=== PATIENT | female | born 1960 | race Caucasian/White ===

== ENCOUNTER 2023-01-28 08:36 | Emergency (ER) | payer BC, SELFPAY ==
[2023-01-28 08:50] VITALS: BP 155/82; PULSE 87; RESP 16; TEMP 36.7; O2SAT 99
--- NOTE | 2023-01-28 08:52 | ED.GENADULT ---
HPI - General Adult General Chief complaint: Extremity Injury, Lower Stated complaint: Right Leg Pain Source: patient, RN notes reviewed and old records reviewed Mode of arrival: ambulatory Limitations: no limitations History of Present Illness HPI narrative: 62 year old female who presents to [facility] with complaints of pain to right leg posteriorly radiating to below right knee at intervals for the past 3 years at various times. Patient states that she lifted some pots initially 3 years ago and then started having this pain at intervals the past 3 years. On the 02 of January she woke up from a nightmare and was kicking and has had a restart of acute discomfort in her right hamstring and her sciatica. Patient reports that she has been taking Naproxen for her discomfort and she feels she needs some physical therapy but doesn't have PCP. MD complaint: pain down right leg Onset (ago): week(s) (this interval started on the 4th of this month) Severity scale (1-10): 6 Quality: other (soreness) Exacerbating factors: movement and other (walking, changing positions) Treatments prior to arrival: other (naproxen) Related Data Allergies Allergy/AdvReac Type Severity Reaction Status Date / Time No Known Allergies Allergy Verified 01/28/23 08:55 Review of Systems Review of Systems: CONSTITUTIONAL: Denies fever, chills, or sweats. EYES: Denies visual changes, redness, or discharge. ENT: Denies rhinorrhea, congestion, sore throat, or otalgia. CARDIOVASCULAR: Denies chest pain, palpitations, or edema. RESPIRATORY: Denies cough or dyspnea. GASTROINTESTINAL: Denies abdominal pain, nausea, vomiting, or diarrhea. GENITOURINARY: Denies dysuria or hematuria. SKIN: Denies rash or itching. MUSCULOSKELETAL: Denies back pain reports pain in right thigh posteriorly radiating to below her knee, or myalgia. NEUROLOGIC: Denies headache, numbness, or weakness. PSYCHIATRIC: Denies anxiety or depression. All systems reviewed & are unremarkable except as noted in HPI and below PMFSH Past Medical History Medical History (Updated 01/28/23 @ 11:07 by Tanesha Wilson NP) Endometriosis Surgical History Surgical History (Updated 01/28/23 @ 11:07 by Tanesha Wilson NP) H/O: hysterectomy Social History Social History (Updated 01/28/23 @ 11:07 by HEAVEN Castillo Smoking status: Never smoker Alcohol intake: current Alcohol use details: rare social Substance use type: does not use Gender identity (if verbalized by the patient): Female Comments At time of signature, agree with nursing past medical, surgical, social and family history. There is no relevant family history pertinent to the presenting complaint Exam Narrative: GENERAL: Well-appearing, well-nourished, and in no acute distress. HEAD: Normocephalic, atraumatic. EYES: PERRLA and EOMI. ENT: Nares clear, no rhinorrhea or epistaxis. Mucous membranes moist. NECK: Supple. no lymphadenopathy CHEST: Clear to auscultation. No respiratory distress.SAO2 99% on room air HEART: Regular rate and rhythm. No murmur heard. Normal peripheral pulses. ABDOMEN: Soft, nontender, nondistended, normal active bowel sounds. EXTREMITIES: Normal range of motion. No edema.Pain to posterior right thigh region radiating down to below her right knee, circulation and sensation intact, no saddle paraesthesia. Increased pain with walking and movement of right leg. SKIN: Warm, dry, no rash. NEURO: No focal deficits. Alert and oriented x3. Course Course Emergency Course: Patient is aware of diagnosis, understands and agrees to treatment plan.? Anticipatory guidance given.? Patient agrees to follow-up as directed and is aware of reasons to seek care at the emergency department. Portions of this record may have been created with voice recognition software Level of Care: Express Care Visit Vital Signs Vital signs: Vital Signs Temperature 36.7 C 01/28/23 08:50 Pulse Rate 87 01/28/23
== END 2023-01-28 09:27 | disposition home or self-care (01) ==
PROVIDERS: Emergency Provider Registered Nurse
DX: M54.31 Sciatica, right side (principal); N80.9 Endometriosis, unspecified
CPT/HCPCS: 99203; G0463